=== PATIENT | male | born 1990 | race Caucasian/White ===

== ENCOUNTER 2022-02-02 09:03 | Emergency (ER) | payer OTHER, SELFPAY ==
--- NOTE | ~2022-02-02 | XR_ITS ---
EXAMINATION: XR CHEST CLINICAL INFORMATION: Chest pain. Inhalation of chemicals. COMPARISON: None TECHNIQUE: Frontal view of the chest was obtained. FINDINGS: Lungs are well-inflated and clear. Trachea is midline in position. No interstitial disease, consolidation or mass. No pleural effusion or pneumothorax. Cardiac silhouette and pulmonary vessels are normal in size. The mediastinum and hazel have normal contour. The visualized bones, and upper abdomen, are unremarkable. XR/XR chest 1V IMPRESSION: Normal chest radiograph. No acute cardiopulmonary abnormality.
[2022-02-02 09:07] VITALS: BP 110/81; PULSE 59; RESP 18; TEMP 36.1; O2SAT 98; BMI 26.6
--- NOTE | 2022-02-02 09:26 | ECG_ITS ---
Test Reason : chemical exposure,dyspnea Blood Pressure : / mmHG Vent. Rate : 060 BPM Atrial Rate : 060 BPM P-R Int : 146 ms QRS Dur : 096 ms QT Int : 402 ms P-R-T Axes : 049 017 009 degrees QTc Int : 402 ms Normal sinus rhythm Normal ECG No previous ECGs available Referred By: Tabitha Nina Electronically Signed By:IRENE TREVIZO
--- NOTE | 2022-02-02 09:29 | ED_ITS ---
HPI - General Adult General Chief complaint: Dyspnea Stated complaint: Splashed with chemicals/work inj Time Seen by Provider: 02/02/22 09:07 Source: patient Mode of arrival: ambulatory Limitations: no limitations History of Present Illness HPI narrative: 31-year-old male with no significant past medical history presents to the emergency department following inhalation of pool chlorine this morning at 08:00. Patient reports that he was in an enclosed space when he inhaled the chemicals. Patient endorses chest pain, nausea, and lightheadedness. Patient states that employer did not provide him any safety data sheets. Patient denies any headache, vision changes, eye irritation, oral mucosa irritation, sore throat, difficulty swallowing, shortness of breath, coughing, wheezing, vomiting, or abdominal pain. Plan: DuoNeb, EKG, chest x-ray Onset (ago): hour(s) Related Data Allergies Allergy/AdvReac Type Severity Reaction Status Date / Time No Known Allergies Allergy Unverified 02/28/20 16:45 Review of Systems Review of Systems: Constitutional: No Weight loss, No Fever, No Chills ENT/Mouth: No Ear Pain, No Nasal Congestion, No Sinus Pain, No Hoarseness, No Sore Throat, No Rhinorrhea, No Swallowing Difficulty Cardiovascular: + Chest Pain, No SOB Respiratory: No Cough, No Sputum, No Wheezing Gastrointestinal: + Nausea, No Vomiting, No Diarrhea, No Constipation, No Abdominal pain Genitourinary: No Dysuria, No Urinary Frequency, No Hematuria, No Urinary Incontinence/Retention, No Urgency, No Flank Pain Musculoskeletal: No Joint Pain, No Myalgias, No Joint Swelling Skin: No Skin Lesions, No rash Neuro: No Weakness, No Numbness, No Paresthesias, + Lightheadedness Yes all other systems are reviewed and are negative Constitutional: Constitutional: Reports as per [facility] Past Medical History Attestation statement: The following information was validated with the patient. Social History Social History Advance Directives: No Advance Directives Information Provided: No Physical Exam ED Vital Signs: Vital Signs - 24 hr 02/02/22 09:07 02/02/22 10:18 Temperature 96.9 F Pulse Rate 59 68 Respiratory Rate 18 18 Blood Pressure 110/81 Pulse Oximetry 98 Oxygen Delivery Method Room Air BMI result Body Mass Index 26.6 Const General: cooperative, healthy appearing and no acute distress Orientation/consciousness: patient oriented x3 Limitations: no limitations [facility] [place] Head: Yes normal to inspection and Yes atraumatic Ears: hearing grossly normal bilaterally General nose exam: Normal external nose present Face and sinus: Yes normal facial exam Mouth: Normal oral and palatal mucosa present and moist mucous membranes Eyes General: appearance normal, both eyes and all related structures Eyelids: Yes eyelids normal Conjunctivae: conjunctivae normal Sclerae: sclerae normal Pupils: Equal, round and reactive pupils present EOM: EOMs intact bilaterally Neck Neck: Yes normal visual inspection and Yes no meningeal signs Resp Effort & Inspection: normal respiratory effort and no respiratory distress Auscultation: clear to auscultation bilaterally, no crackles, no rales, no rhonchi and no wheezes Cardio Rate: regular rate Heart sounds: S1 normal heart sound present and S2 normal heart sound present GI Inspection: Yes normal to inspection and No distended Palpation (GI): Soft to palpation, nontender, no guarding and not rigid General: Yes no CVA tenderness Back/Spine/Pelvis Back: no CVA tenderness Skin General skin exam: no rashes or lesions noted Rashes: no rashes Wounds: no wounds Neuro General: patient oriented x3, tone normal and no meningeal signs Cranial nerves: Yes Equal, round and reactive pupils present Gait exam (Neuro): Normal gait present Extrem General: Yes normal to inspection Course Course Course Narrative: 10:38 -- XR chest 1V IMPRESSION: Normal chest radiograph. No acute cardiopulmonary abnormality. ? Medical Decision Making [facility] Narrative Medical decision making narrative: 31-year-old male with no significant past medical history presents to the emergency department following inhalation of pool chlorine this morning at 08:00. On exam, vital signs stable, NAD, nontoxic appearing. Patient was clear to auscultation bilaterally. No irritation, erythema, or swelling of the oral mucosa was appreciated. Patient's eyes were clear bilaterally with no erythema, itchiness, tenderness. Concern for allergic reaction vs. irritation. Low suspicion for anaphylaxis based on physical exam and patient's presentation. ECG Data Attestation: I personally reviewed and interpreted this ECG as follows: Prior ECG tracings: not available for review Interpretation: Test Reason : Chemical exposure, dyspnea Blood Pressure : / mmHG Vent. Rate : 060 BPM ? ? Atrial Rate : 060 BPM P-R Int : 146 ms? QRS Dur : 096 ms QT Int : 402 ms ? ? ? P-R-T Axes : 049 017 009 degrees QTc Int : 402 ms ? Normal sinus rhythm Normal ECG No previous ECGs available Discharge Plan Discharge Clinical Impression: Exposure to chemical inhalation Patient Disposition: Home, Self-Care Instructions: Contact Precautions (ED) Additional Instructions: You were recently treated for chemical inhalation. Your chest x-ray was reassuring, with no abnormalities or injury. Your EKG showed normal sinus rhythm. If you have any worsening symptoms such as increased chest pain, shortness of breath, fever, or vomiting, please return to the emergency department. Referrals: Physician,Unknown J [Primary Care Provider] - (Please follow up with your PCP within 2-3 days. ) Stand Alone Forms: Work/School Release Print Language: Thai
[2022-02-02] MEDS: Albuterol/Iprat 2.5/0.5MG 3 ML AMPUL.NEB INHALE (10:16)
[2022-02-02 10:18] VITALS: PULSE 68; RESP 18; O2SAT 98
== END 2022-02-02 11:30 | disposition home or self-care (01) ==
PROVIDERS: Emergency Provider Emergency Medicine
DX: R06.02 Shortness of breath (principal); Z57.5 Occupational exposure to toxic agents in other industries
CPT/HCPCS: 71045; 93005; 94640; 99284

== ENCOUNTER 2024-12-08 15:06 | Emergency (ER) | payer OTHER, SELFPAY ==
--- NOTE | 2024-12-08 15:14 | ED_ITS ---
HPI - Wound/Laceration General Chief Complaint: Wound/Laceration Stated Complaint: rt thumb-WC Time Seen by Provider: 12/08/24 15:20 Source: patient Mode of arrival: ambulatory Limitations: no limitations History of Present Illness ED Provider: Kortney Nunes APRN HPI narrative: 34 yo male with no known medical history right hand dominant here with complaints of work injury to right hand, 1st digit. Patient reports he was working on a door frame with pliers and his hand slipped and he is unsure how but he hit his digit on the door frame. Denies crush injury. No pain. Has small abrasion. Tetanus status unknown. No associated weakness, numbness or tingling of the digit. Related Data Previous Rx's ?Medication ?Instructions ?Recorded mupirocin 2 % topical ointment 1 appl topical DAILY #1 5 grams 12/08/24 (Centany) Allergies Allergy/AdvReac Type Severity Reaction Status Date / Time No Known Allergies Allergy Verified 12/08/24 15:15 Review of Systems 2 Review of Systems: Yes all other systems are reviewed and are negative Constitutional: Constitutional: Reports no additional constitutional complaints, Denies body ache(s), Denies chills, Denies fever(s), Denies headache(s) and Denies weakness Eyes: Eyes: Reports no additional eye complaints and Denies change in vision ENT: Reports system reviewed and no additional complaints, except as documented, Denies dizziness, Denies headache(s), Denies nasal congestion, Denies nasal discharge and Denies neck pain Cardiovascular: Cardiovascular: Reports no additional cardiovascular complaints, Denies chest pain, Denies leg edema and Denies dyspnea Respiratory: Respiratory: Reports no additional respiratory complaints, Denies cough and Denies dyspnea Gastrointestinal: Gastrointestinal: Reports no additional gastrointestinal complaints, Denies abdominal pain, Denies diarrhea, Denies nausea and Denies vomiting Genitourinary: Genitourinary: Denies urinary incontinence Musculoskeletal: Musculoskeletal: Reports no additional musculoskeletal complaints, Denies back pain, Denies arthralgias, Denies joint swelling, Denies neck pain, Denies numbness and Denies tingling Integumentary/Breasts: Skin/Breast: Reports system reviewed and no additional complaints, except as docu, Denies rash and Reports wounds Neurologic: Reports system reviewed and no additional complaints, except as documented, Denies Abnormal speech present, Denies dizziness, Denies headache(s), Denies numbness, Denies tingling and Denies weakness PMFSH Past Medical History Attestation statement: The following information was validated with the patient. Source: old records reviewed and nursing notes reviewed Physical Exam 2 Vital Signs: Vital Signs: Last Vital Signs Temp 98.4 F 12/08/24 15:15 Pulse 75 12/08/24 15:15 Resp 16 12/08/24 15:15 BP 127/77 12/08/24 15:15 Pulse Ox 98 12/08/24 15:15 O2 Del Method Room Air 12/08/24 15:15 BMI result Body Mass Index 30.9 Const: General: cooperative, healthy appearing, comfortable and no acute distress Orientation/consciousness: patient oriented x3 Limitations: no limitations HEENT: Head: Yes normal to inspection Ears: hearing grossly normal bilaterally General nose exam: Normal external nose present Face and sinus: Yes normal facial exam Mouth: Normal oral and palatal mucosa present Throat: Yes posterior oropharynx normal Eyes: General: appearance normal, both eyes and all related structures P upils: Equal, round and reactive pupils present Neck: Neck: Yes normal visual inspection Chest: Chest palpation & inspection: normal inspection of the chest Resp: Effort & Inspection: normal respiratory effort Auscultation: clear to auscultation bilaterally Cardio: Rate: regular rate Rhythm: regular rhythm Peripheral pulses: P eripheral pulses 2+ throughout GI: Inspection: Yes normal to inspection Palpation (GI): Soft to palpation and nontender Auscultation: normal bowel sounds Back/Spine/Pelvis: Thoracic/Lumbar Spine: thoracic and lumbar spine normal to inspection Skin: General skin exam: no rashes or lesions noted Neuro: General: patient oriented x3, no focal motor deficits and normal sensation to monofilament Cranial nerves: Yes Equal, round and reactive pupils present Cognition (Neuro): normal cognition Speech: No Abnormal speech present Gait exam (Neuro): Normal gait present Motor exam (neuro): 5/5 motor strength present throughout Extrem: Hand/finger images: 1. At the distal aspect of the right hand 1st digit there is a superficial laceration, edges are approximated, no bleeding. It extends to the distal nailbed and the nail is lacerated but the bed is intact. The nail is firmly in place. FROM of the digit. Sensation normal. Course Course Course Narrative: Kortney Pascucci [employer] This is a rapid medical exam. Deferred additional HPI, ROS, PE to primary provider. Medications Administered Discontinued Medications Generic Name Dose Route Start Last Admin Trade Name Rosita PRN Reason Stop Dose Admin Bacitracin 1 appl 12/08/24 15:17 12/08/24 15:23 Bacitracin Oint 0.9 Gm Packet TOPICAL 12/08/24 15:18 1 appl ONCE ONE Administration Protocol Diphtheria/Tetanus/Acell Pertussis 0.5 ml 12/08/24 15:17 12/08/24 15:23 Diphth,Pertus(Acell),Tet Adult 0.5 Ml Syringe IM 12/08/24 15:18 0.5 ml .ONCE ONE Administration Ibuprofen 600 mg 12/08/24 15:18 12/08/24 15:23 Ibuprofen 600 Mg Tablet PO 12/08/24 15:19 600 mg ONCE ONE Administration Medical Decision Making Medical Decision Making MDM Narrative: 34 yo male with no known medical history right hand dominant here with complaints of work injury to right hand, 1st digit. Patient reports he was working on a door frame with pliers and his hand slipped and he is unsure how but he hit his digit on the door frame. Denies crush injury. No pain. Has small abrasion. Tetanus status unknown. No associated weakness, numbness or tingling of the digit. At the distal aspect of the right hand 1st digit there is a superficial laceration, edges are approximated, no bleeding. It extends to the distal nailbed and the nail is lacerated but the bed is intact. The nail is firmly in place. FROM of the digit. Sensation normal. Site was cleansed in triage, topical bacitracin and dressing placed. Tetanus updated. Analgesia provided. Reviewed wound care at home, reviewed worrisome signs/symptoms with patient and when to seek additional care. Comfortable with discharge home. Differential Diagnosis Differential Diagnoses: The differential diagnosis associated with the presentation includes laceration, abrasion Admission/Observation Consideration of admission/observation: Escalation of care including admission/observation considered Tests considered The following testing was considered but not selected: no need for x-ray Prescription Management I considered prescription management with: Pain Medication Discharge Plan Discharge Clinical Impression: Laceration of thumb, right Patient Disposition: Home, Self-Care Instructions: Laceration (ED) Additional Instructions: Keep it clean, covered and dry Return for fever, redness, drainage or odor Prescriptions: New mupirocin [Centany] 2 % ointment 1 appl topical DAILY Qty: 15 0RF Referrals: ED Physician,Generic [Physician, Emergency Medicine] Stand Alone Forms: Work/School Release Print Language: Nepali
[2024-12-08 15:15] VITALS: BP 127/77; PULSE 75; RESP 16; TEMP 36.9; O2SAT 98; BMI 30.9
[2024-12-08] MEDS: Bacitracin Oint 0.9 GM PACKET 1 APPL TOPICAL (15:23)
[2024-12-08] MEDS: Diphth,Pertus(ACell),Tet Adult 0.5 ML SYRINGE IM (15:23)
[2024-12-08] MEDS: Ibuprofen 600 MG TABLET PO (15:23)
[2024-12-08 15:29] VITALS: BP 127/77; PULSE 75; RESP 16; TEMP 36.9; O2SAT 98
== END 2024-12-08 15:30 | disposition home or self-care (01) ==
PROVIDERS: Emergency Provider Emergency Medicine
DX: S61.011A Laceration without foreign body of right thumb without damage to nail, initial encounter (principal); M79.641 Pain in right hand; W26.9XXA Contact with unspecified sharp object(s), initial encounter; Y93.9 Activity, unspecified; Y92.9 Unspecified place or not applicable; Y99.0 Civilian activity done for income or pay; Z23 Encounter for immunization
CPT/HCPCS: 90471; 90715; 99283; 99284